=== PATIENT | male | born 1980 | race Caucasian/White ===

== ENCOUNTER → 2022-11-04 10:22 | Outpatient (BNVA) | payer BC, SELFPAY | PROVIDERS: PCP Nurse Practitioner Family; Visit Provider Nurse Practitioner Family | DX: Z00.00 Encounter for general adult medical examination without abnormal findings (principal); R07.9 Chest pain, unspecified; F41.9 Anxiety disorder, unspecified; K21.9 Gastro-esophageal reflux disease without esophagitis; Z13.6 Encounter for screening for cardiovascular disorders | CPT/HCPCS: 80053; 80061; 81000; 83735; 84443; 85025 ==

== ENCOUNTER → 2024-03-16 09:50 | Outpatient (BNVA) | payer BC, SELFPAY | PROVIDERS: PCP Nurse Practitioner Family; Visit Provider Nurse Practitioner Family | DX: R53.83 Other fatigue (principal); R10.11 Right upper quadrant pain; Z13.6 Encounter for screening for cardiovascular disorders; R30.0 Dysuria | CPT/HCPCS: 80053; 80061; 81000; 82306; 82607; 84443; 85025; 86592; 86705; 86706; 86709; 86803; 87340; 87491; 87591; 87806 ==

== ENCOUNTER → 2024-04-30 11:43 | Outpatient (BNVA) | payer BC, SELFPAY | PROVIDERS: PCP Nurse Practitioner Family; Visit Provider Nurse Practitioner Family | DX: E55.9 Vitamin D deficiency, unspecified (principal); R94.4 Abnormal results of kidney function studies | CPT/HCPCS: 80048; 82306 ==

== ENCOUNTER → 2024-10-18 09:25 | Outpatient (BNVA) | payer BC, SELFPAY | PROVIDERS: PCP Nurse Practitioner Family; Visit Provider Nurse Practitioner Family | DX: R10.9 Unspecified abdominal pain (principal) | CPT/HCPCS: 81000 ==

== ENCOUNTER → 2024-10-22 13:17 | Outpatient (BNVA) | payer BC, SELFPAY | PROVIDERS: PCP Nurse Practitioner Family; Visit Provider Nurse Practitioner Family | DX: I10 Essential (primary) hypertension (principal); R10.9 Unspecified abdominal pain | CPT/HCPCS: 74018; 80053; 80061; 81000; 82306; 82607; 84443; 85025 ==

== ENCOUNTER → 2025-08-09 08:22 | Outpatient (BNVA) | payer BC, SELFPAY | PROVIDERS: PCP Nurse Practitioner Family; Visit Provider Nurse Practitioner Family | DX: J02.9 Acute pharyngitis, unspecified (principal) | CPT/HCPCS: 87071; 87880 ==